=== PATIENT | male | born 2000 | race African-American/Black ===

== ENCOUNTER 2022-05-22 19:16 | Emergency (ER) | payer SELFPAY ==
[2022-05-22 19:33] VITALS: TEMP 98.1; BMI 21.9
[2022-05-22] MEDS ORDERED: LACTATED RINGERS SOLUTION 1000 ML INFUS.BAG IV ONE (19:39)
[2022-05-22] MEDS ORDERED: LIDOCAINE HCL 1%, 10 MG/ML (50 mL VIAL) SQ ONE ×2 (19:55→20:59)
[2022-05-22] MEDS ORDERED: LIDOCAINE HCL 1%, 10 MG/ML (20ML VIAL) ONE ×3 (20:10→21:29)
[2022-05-22] MEDS ORDERED: PHENYLEPHRINE HCL 10 MG/1 ML SINGLE DOSE VIAL ONE (20:12)
[2022-05-22 20:33] LABS: HEMATOCRIT 19.5 % (35.4-49); MCHC 35.8 g/dl (32.0-35.9); MEAN CELL VOLUME 94.8 fl (80-96); MEAN PLT VOLUME 8.4 fl (7.5-11.1); PLATELET COUNT 351 10^3/uL (134-434); RBC 2.06 M/mm3 (4.00-5.60); RDW 20.7 % (11.9-15.9); WHITE BLOOD COUNT 11.8 K/mm3 (4.0-10.0)
[2022-05-22 20:38] LABS: INR 1.3 (0.83-1.09)
[2022-05-22 20:41] LABS: ACTIVATED PTT 28.6 SECONDS (25.2-36.5)
[2022-05-22 20:51] LABS: CALCIUM 8.6 mg/dL (8.5-10.1)
[2022-05-22 20:52] LABS: ALBUMIN 4.2 g/dl (3.4-5.0); BLOOD UREA NITROGEN 9.2 mg/dL (7-18)
[2022-05-22] MEDS ORDERED: PHENYLEPHRINE HCL 10 MG/1 ML SINGLE DOSE VIAL IVPB ONE (20:54)
[2022-05-22 20:56] LABS: CREATININE 0.7 mg/dL (0.55-1.3)
[2022-05-22 21:26] LABS: VENOUS BASE EXCESS -23.6 mmol/L (-2-2); VENOUS O2 SATURATION 17.3 % (70-80); VENOUS PCO2 67.8 mmHg (38-52)
[2022-05-22 21:34] LABS: VENOUS PH 6.791 (7.310-7.410)
[2022-05-22 22:35] LABS: ANISOCYTOSIS 1+; MACROCYTOSIS 1+; OVALOCYTE 1+; PLATELET ESTIMATE NORMAL; SICKELED CELLS 1+; TARGET CELLS 1+
[2022-05-22] MEDS ORDERED: POTASSIUM CHLORIDE TABS 20 MEQ TABLET.ER (FP) PO ONE ×2 (22:43→22:46)
[2022-05-22 22:57] VITALS: BP 115/67; PULSE 59; RESP 18
== END 2022-05-22 23:00 | disposition home or self-care (01) ==
LOC: JER 19:16
DX: N48.32 Priapism due to disease classified elsewhere (principal)
CPT/HCPCS: 36415; 80053; 82803; 85025; 85045; 85610; 85730; 86850; 86900; 86901; 93005; 93010; 99284-25

== ENCOUNTER 2022-05-31 11:21 | Emergency (ER) | payer OTHER ==
[2022-05-31 11:25] VITALS: BP 121/67; PULSE 67; RESP 18; TEMP 98.4; BMI 20.3
[2022-05-31] MEDS ORDERED: KETOROLAC TROMETHAMINE 30 MG/1 ML VIAL IM ONE (13:34)
[2022-05-31] MEDS ORDERED: KETOROLAC TROMETHAMINE 30 MG/1 ML VIAL ONE (13:39)
== END 2022-05-31 14:13 | disposition home or self-care (01) ==
LOC: JERFT 11:21
PROC: 3E0233Z Introduction of Anti-inflammatory into Muscle, Percutaneous Approach (ICD-10-PCS; principal; 2022-05-31)
DX: S92.912A Unspecified fracture of left toe(s), initial encounter for closed fracture (principal)
CPT/HCPCS: 73660-TC-LT-FY; 99284-25

== ENCOUNTER 2023-04-06 22:54 | Emergency (ER) | payer OTHER ==
[2023-04-06 23:00] VITALS: BP 108/41; PULSE 85; RESP 18; TEMP 99; BMI 19.8
[2023-04-06] MEDS ORDERED: IBUPROFEN 400 MG TABLET (FP) PO ONE ×2 (23:31→23:36)
== END 2023-04-07 01:18 | disposition home or self-care (01) ==
LOC: JER 22:54
PROC: 2W3CX1Z Immobilization of Right Lower Arm using Splint (ICD-10-PCS; principal; 2023-04-06)
DX: M25.531 Pain in right wrist (principal); V86.56XA Driver of dirt bike or motor/cross bike injured in nontraffic accident, initial encounter
CPT/HCPCS: 73110-TC-RT-FY; 73130-TC-RT-FY; 99283-25

== ENCOUNTER 2023-07-11 17:12 | Inpatient (IN) | payer OTHER ==
[2023-07-11] MEDS ORDERED: DIPHTH,PERTUSS(ACELL),TET 0.5 ML DISP.SYRIN IM ONE ×2 (17:55→18:12)
[2023-07-11 18:13] LABS: BASO % 0.3 % (0-2.0); EOS % 0.6 % (0-4.5); HEMATOCRIT 19.2 % (35.4-49); LYMPH % 21.4 % (8-40); MCHC 36.2 g/dl (32.0-35.9); MEAN CELL VOLUME 96.6 fl (80-96); MEAN PLT VOLUME 8.6 fl (7.5-11.1); NEUT % 69.7 % (42.8-82.8); PLATELET COUNT 339 10^3/uL (134-434); RBC 1.98 M/mm3 (4.00-5.60); RDW 21.4 % (11.9-15.9); WHITE BLOOD COUNT 15.4 K/mm3 (4.0-10.0)
[2023-07-11 18:17] LABS: HEMOGLOBIN 6.9 GM/dL (11.7-16.9)
[2023-07-11 18:28] LABS: CHLORIDE 111 mmol/L (98-107); POTASSIUM 4.4 mmol/L (3.5-5.1); SODIUM 141 mmol/L (136-145)
[2023-07-11 18:30] LABS: CALCIUM 8.4 mg/dL (8.5-10.1)
[2023-07-11 18:31] LABS: ANION GAP 11 MMOL/L (8-16); BLOOD UREA NITROGEN 17.8 mg/dL (7-18); CO2 18 mmol/L (21-32); GLUCOSE,RANDOM 115 mg/dL (74-106)
[2023-07-11 18:33] LABS: CREATININE 1.4 mg/dL (0.55-1.3)
[2023-07-11 18:34] LABS: SGOT/AST 66 U/L (15-37); SGPT/ALT 23 U/L (13-61)
[2023-07-11 18:35] LABS: BILIRUBIN,TOTAL 4.6 mg/dL (0.2-1)
[2023-07-11 18:36] LABS: ALK PHOS 59 U/L (45-117)
[2023-07-11 18:52] LABS: ANISOCYTOSIS 2+; MACROCYTOSIS 0
[2023-07-11] MEDS ORDERED: AMPICILLIN NA/SULBACTAM NA 3 GM in SODIUM CHLORIDE 100 ML IVPB ONE (18:52)
[2023-07-11] MEDS ORDERED: ACETAMINOPHEN 1000 MG/100 ML BAG IVPB ONE (18:52)
[2023-07-11 19:13] LABS: EPI CELLS 6 /uL (0-25.1); HYALINE CASTS 2 /uL (0-3.1); PH,URINE 5.5 (5.0-8.0); URINE APPEARANCE CLEAR; URINE BACTERIA 4 /uL (0-1359); URINE BILIRUBIN NEGATIVE (NEGATIVE); URINE COLOR ORANGE; URINE GLUCOSE (UA) NEGATIVE (NEGATIVE); URINE KETONE NEGATIVE (NEGATIVE); URINE LEUK ESTERASE NEGATIVE (NEGATIVE); URINE NITRITE NEGATIVE (NEGATIVE); URINE PROTEIN 3+ (NEGATIVE); URINE WBC 34 /uL (0-25.8)
[2023-07-11] MEDS ORDERED: AMPICILLIN NA/SULBACTAM NA 3 GM VIAL ONE (19:17)
[2023-07-11] MEDS ORDERED: ACETAMINOPHEN INJECTION 100 ML IVPB ONE (19:17)
[2023-07-11 19:30] LABS: RETICULOCYTES 10.44 % (0.5-1.5)
[2023-07-11 19:59] LABS: URINE RBC 93 /uL (0-23.9)
[2023-07-11] MEDS ORDERED: VANCOMYCIN 1,000 MG in DEXTROSE 5%-WATER - 250 ML IVPB ONE (21:35)
[2023-07-11] MEDS ORDERED: VANCOMYCIN 1 GRAM (PRE-DOCKED) 1,000 MG/250 ML BAG IVPB ONE (21:40)
[2023-07-12] MEDS: NICOTINE 14 MG/24 HOURS TOPICAL PATCH TD SCH ×2 (01:00→10:52)
[2023-07-12 01:21] LABS: HEMATOCRIT 18.8 % (35.4-49); MCH 34.6 pg (25.7-33.7); MCHC 35.9 g/dl (32.0-35.9); MEAN CELL VOLUME 96.3 fl (80-96); MEAN PLT VOLUME 8.4 fl (7.5-11.1); PLATELET COUNT 325 10^3/uL (134-434); RBC 1.95 M/mm3 (4.00-5.60); RDW 20.4 % (11.9-15.9); WHITE BLOOD COUNT 16.3 K/mm3 (4.0-10.0)
[2023-07-12 01:30] LABS: INR 1.33 (0.83-1.09); PROTHROMBIN TIME (PATIENT) 15.4 SEC (9.7-13.0)
[2023-07-12 01:33] LABS: ACTIVATED PTT 31.5 SECONDS (25.2-36.5)
[2023-07-12 01:35] LABS: ADD RBC MORPHOLOGY YES; HEMOGLOBIN 6.7 GM/dL (11.7-16.9)
[2023-07-12 02:23] LABS: EPI CELLS 2 /uL (0-25.1); HYALINE CASTS 0 /uL (0-3.1); PH,URINE 5.5 (5.0-8.0); URINE APPEARANCE CLEAR; URINE BACTERIA 0 /uL (0-1359); URINE BILIRUBIN NEGATIVE (NEGATIVE); URINE COLOR YELLOW; URINE GLUCOSE (UA) NEGATIVE (NEGATIVE); URINE KETONE NEGATIVE (NEGATIVE); URINE LEUK ESTERASE NEGATIVE (NEGATIVE); URINE NITRITE NEGATIVE (NEGATIVE); URINE PROTEIN NEGATIVE (NEGATIVE); URINE UROBILINOGEN 0.2 mg/dL (0.2-1.0); URINE WBC 5 /uL (0-25.8)
[2023-07-12 03:22] LABS: ANISOCYTOSIS 2+; MACROCYTOSIS 1+; OVALOCYTE 1+; SICKELED CELLS 2+; TARGET CELLS 2+; TOXIC GRANULATION 2+
[2023-07-12] MEDS ORDERED: AMPICILLIN NA/SULBACTAM NA 3 GM in SODIUM CHLORIDE 100 ML IVPB SCH ×2 (03:45→06:45)
[2023-07-12] MEDS: SODIUM CHLORIDE 1,000 ML IV SCH ×2 (04:33→16:31)
[2023-07-12] MEDS ORDERED: ACETAMINOPHEN 1000 MG/100 ML BAG IVPB ONE (05:37)
[2023-07-12 06:40] VITALS: BMI 18.3
[2023-07-12 06:48] VITALS: RESP 18
[2023-07-12 07:29] LABS: URINE RBC 27.4 /uL (0-23.9)
[2023-07-12 09:44] LABS: HEMATOCRIT 20.9 % (35.4-49); HEMOGLOBIN 7.5 GM/dL (11.7-16.9); MCH 34.4 pg (25.7-33.7); MCHC 36.1 g/dl (32.0-35.9); MEAN CELL VOLUME 95.3 fl (80-96); MEAN PLT VOLUME 8.8 fl (7.5-11.1); PLATELET COUNT 333 10^3/uL (134-434); RBC 2.19 M/mm3 (4.00-5.60); RDW 19.2 % (11.9-15.9); WHITE BLOOD COUNT 11.9 K/mm3 (4.0-10.0)
[2023-07-12 09:48] LABS: HEMOGLOBIN 7.5 GM/dL (11.7-16.9); MCH 33.7 pg (25.7-33.7); MCHC 35.7 g/dl (32.0-35.9); MEAN CELL VOLUME 94.4 fl (80-96); MEAN PLT VOLUME 8.9 fl (7.5-11.1); PLATELET COUNT 347 10^3/uL (134-434); RBC 2.23 M/mm3 (4.00-5.60); RDW 19.3 % (11.9-15.9); WHITE BLOOD COUNT 12.4 K/mm3 (4.0-10.0)
[2023-07-12] MEDS ORDERED: VANCOMYCIN 1,000 MG in DEXTROSE 5%-WATER - 250 ML IVPB SCH (10:00)
[2023-07-12 10:09] LABS: POTASSIUM 4.3 mmol/L (3.5-5.1)
[2023-07-12 10:44] LABS: ALBUMIN 3.6 g/dl (3.4-5.0); MAGNESIUM 1.7 mg/dL (1.8-2.4)
[2023-07-12 10:47] LABS: BILIRUBIN,TOTAL 3.6 mg/dL (0.2-1); CREATININE 0.9 mg/dL (0.55-1.3); PHOSPHOROUS 3.5 mg/dL (2.5-4.9)
[2023-07-12 10:48] LABS: TOT PROT 6.4 g/dl (6.4-8.2)
[2023-07-12] MEDS: ACETAMINOPHEN 500 MG TABLET (FP) PO PRN ×2 (11:30→18:32)
[2023-07-12] MEDS: VANCOMYCIN/WATER FOR INJ (PEG) 1,000 MG/200 ML BAG IVPB SCH ×2 (12:31→23:09)
[2023-07-12] MEDS: HYDROXYUREA 500 MG CAPSULE PO SCH (15:14)
[2023-07-12] MEDS: FOLIC ACID 1 MG TABLET (FP) PO SCH (15:14)
[2023-07-12 15:55] LABS: PHENCYCLIDINE,URINE NEGATIVE (NEGATIVE)
[2023-07-12 15:56] LABS: COCAINE, UR NEGATIVE (NEGATIVE); METHADONE, UR NEGATIVE (NEGATIVE); OPIATES, URI NEGATIVE (NEGATIVE); URINE AMPHETAMINES NEGATIVE (NEGATIVE); URINE BARBITURATES NEGATIVE (NEGATIVE); URINE BENZODIAZEPINES NEGATIVE (NEGATIVE)
[2023-07-12] MEDS: BACITRACIN ZINC 15 GM TUBE TOPICAL OINTMENT TP SCH (16:30)
[2023-07-12 16:56] LABS: BASO % 0.2 % (0-2.0); EOS % 1.3 % (0-4.5); HEMATOCRIT 21.5 % (35.4-49); HEMOGLOBIN 7.9 GM/dL (11.7-16.9); MCH 33.9 pg (25.7-33.7); MCHC 36.5 g/dl (32.0-35.9); MONO % 9.8 % (3.8-10.2); NEUT % 58.7 % (42.8-82.8); PLATELET COUNT 338 10^3/uL (134-434); RBC 2.32 M/mm3 (4.00-5.60); RDW 19.2 % (11.9-15.9); WHITE BLOOD COUNT 10.3 K/mm3 (4.0-10.0)
[2023-07-12] MEDS: AMPICILLIN NA/SULBACTAM NA 3 GM in SODIUM CHLORIDE 100 ML IVPB SCH (18:01)
[2023-07-12 18:11] LABS: HIV INTERPRETATION NEGATIVE (NEGATIVE)
[2023-07-12] MEDS ORDERED: MAGNESIUM 2GM/50ML STERILE WATER IVPB IVPB ONE (18:48)
[2023-07-12] MEDS ORDERED: IBUPROFEN 400 MG TABLET (FP) PO ONE (20:45)
[2023-07-13] MEDS: ACETAMINOPHEN 500 MG TABLET (FP) PO PRN (00:21)
[2023-07-13] MEDS: AMPICILLIN NA/SULBACTAM NA 3 GM in SODIUM CHLORIDE 100 ML IVPB SCH ×2 (01:18→10:04)
[2023-07-13] MEDS: SODIUM CHLORIDE 1,000 ML IV SCH (05:26)
[2023-07-13] MEDS: FOLIC ACID 1 MG TABLET (FP) PO SCH (10:03)
[2023-07-13] MEDS: HYDROXYUREA 500 MG CAPSULE PO SCH (10:03)
[2023-07-13] MEDS: BACITRACIN ZINC 15 GM TUBE TOPICAL OINTMENT TP SCH (10:04)
[2023-07-13] MEDS: NICOTINE 14 MG/24 HOURS TOPICAL PATCH TD SCH (10:04)
[2023-07-13 10:08] LABS: BASO % 0.4 % (0-2.0); EOS % 2.2 % (0-4.5); HEMATOCRIT 19.9 % (35.4-49); HEMOGLOBIN 7.4 GM/dL (11.7-16.9); LYMPH % 29.6 % (8-40); MCH 34.4 pg (25.7-33.7); MCHC 37.2 g/dl (32.0-35.9); MEAN CELL VOLUME 92.5 fl (80-96); MEAN PLT VOLUME 8.7 fl (7.5-11.1); MONO % 9.9 % (3.8-10.2); NEUT % 57.9 % (42.8-82.8); PLATELET COUNT 318 10^3/uL (134-434); RBC 2.15 M/mm3 (4.00-5.60); WHITE BLOOD COUNT 7.7 K/mm3 (4.0-10.0)
[2023-07-13 10:24] LABS: POTASSIUM 4.9 mmol/L (3.5-5.1)
[2023-07-13 10:28] LABS: ALBUMIN 3.4 g/dl (3.4-5.0); CALCIUM 8.3 mg/dL (8.5-10.1)
[2023-07-13 10:29] LABS: BLOOD UREA NITROGEN 7.6 mg/dL (7-18); MAGNESIUM 1.8 mg/dL (1.8-2.4)
[2023-07-13 10:32] LABS: CREATININE 0.7 mg/dL (0.55-1.3)
[2023-07-13 10:33] LABS: BILIRUBIN,TOTAL 3.6 mg/dL (0.2-1)
[2023-07-13] MEDS ORDERED: VANCOMYCIN/WATER FOR INJ (PEG) 1,000 MG/200 ML BAG IVPB SCH (14:00)
[2023-07-13] MEDS: VANCOMYCIN/WATER FOR INJ (PEG) 1,000 MG/200 ML BAG IVPB SCH (14:22)
[2023-07-13 15:16] VITALS: BP 114/63; PULSE 63; TEMP 99.6
[2023-07-14] MEDS ORDERED: MULTIVITAMINS THER W-MINERALS COMBO TABLET (FP) PO SCH (10:00)
== END 2023-07-13 17:03 | disposition home or self-care (01) | DRG 383 ==
LOC: JER 17:12 → JERBED 21:58 → J5S 07-12 02:35
PROVIDERS: ADMIT Internal Medicine
PROC: 30233N1 Transfusion of Nonautologous Red Blood Cells into Peripheral Vein, Percutaneous Approach (ICD-10-PCS; principal; 2023-07-11)
DX: L03.114 Cellulitis of left upper limb (principal); D57.1 Sickle-cell disease without crisis; R51.9 Headache, unspecified; S01.35 Open bite of ear; S41.119A Laceration without foreign body of unspecified upper arm, initial encounter; S41.159A Open bite of unspecified upper arm, initial encounter; D64.9 Anemia, unspecified; W50.3XXA Accidental bite by another person, initial encounter; Y93.9 Activity, unspecified; Y92.89 Other specified places as the place of occurrence of the external cause; Y99.9 Unspecified external cause status
CPT/HCPCS: 0241U-QW; 36415; 36430; 70450-TC; 70486-TC; 71045-TC-FY; 71260-TC; 72125-TC; 72170-TC-FY; 73070-TC-LT-FY; 73090-TC-LT-FY; 73090-TC-RT-FY; 73110-TC-LT-FY; 73130-TC-LT-FY; 74177-TC; 76775-TC; 80053; 80307; 81003; 82272; 82550; 82553; 82728; 82962; 83010; 83615; 83735; 84100; 85025; 85027; 85045; 85610; 85730; 86705; 86803; 86902; 86922; 87040; 87086; 87340; 87389; 87517; 90715; 93005; 93010; 99285-25; J8999; P9058; Q9967